=== PATIENT | female | born 1960 | race Caucasian/White ===

== ENCOUNTER → 2016-11-25 | Day surgery (SDC) | payer OTHER ==
[~2016-11-25] VITALS: Ht 160 cm; Wt 71.0 kg
[~2016-11-25] MED LIST: ASPI81TA28 PO; ATOR-24 PO; CITA40TA12 PO; CITA40TA4 PO; CLR10 PO; FENTANYL CITRATE INJ 50 MCG/1 ML 2 ML VIAL ONE; FEXO1TAB49 PO; FLUT0.15; HEPARIN SOD (PORCINE) 1000 UNIT/ML 10 ML VIAL ONE; HYDR12.55 PO; LOSA50TA6 PO; MELA1TAB5 PO; MELATAB2 PO; MIDAZOLAM HCL 1 MG/ML 2ML VIAL ONE; NITROGLYCERIN/D5W 100MCG/ML 20ML SYR ONE; NiCARDipine HCL INJ 2.5 MG/ML 10 ML AMP ONE; Proair INH; SYMIN160 INH; VNTHFA/IN INH; hydrodiuril PO
[2016-11-25 08:55] VITALS: Ht 160 cm; Wt 71.0 kg
[2016-11-25 08:56] VITALS: BP 151/67; PULSE 57; TEMP 36.5; O2SAT 94
--- NOTE | 2016-11-25 11:13 | Procedure Note ---
Pre-Mod Sedation Assessment General Date of Moderate Sedation: Nov 25, 2016. Vital Signs: Vital Signs Past 12 Hours Date Time Temp Pulse Resp B/P Pulse Ox O2 Delivery O2 Flow Rate FiO2 11/25/16 08:56 36.5 57 18 151/67 94 Room Air Review Cardiovascular: regular rate, rhythm, no edema, no gallop Abdomen: normal bowel sounds, non tender, soft Lungs: chest non-tender, lungs clear, normal breath sounds Pre-Sedation Airway Assessment Oral Cavity: WNL Short Thick Neck: No Hx of Sleep Apnea: No Smoking Status: Current Every Day Smoker Mallampati Classification: Class III ASA Classification: Class III Procedure Planning Contraindications-for Mod Sed: None Yes Notes The planned sedation has been discussed with the patient and consent obtained. I have identified the patient, determined the appropriateness of sedation and have assessed the patient immediately prior to the procedure. All medicine(s) and interventions are by my order.
--- NOTE | 2016-11-25 11:29 | Cardiac Catheterization ---
Procedure Note Procedure Date Nov 25, 2016. Pre-Procedure Diagnosis Positive Stress Test, Cardiothoracic Symptom Post-Procedure Diagnosis Severe CAD Procedure(s) Performed Coronary Angiography, Left Heart Cath Lead Warehouse Associate Dr. 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 and possible PCI ACC Data Cardiac Status Clinical evaluation leading to the procedure CAD Presntation: Positive Stress Test Anginal Classification: CCS III Heart Failure: No Stress Echocardiogram: Yes - Negative, Yes - Indeterminant Coronary Anatomy Dominant: Right Left Main (% Stenosis): Normal (short vessel) LAD (% Stenosis): Ostial (0%), Proximal (10%), Mid (50-60% at origin of bifurcating diagonal branch vessel), Distal (10%) D1 (% Stenosis): Ostial (30%), Proximal (birfurcates near the ostium, 20%), Mid (10%), Distal (10%) Circumflex (% Stenosis): Ostial (20% taper), Proximal (0%), Mid (10%), Distal OM1 (% Stenosis): Ostial (60-70%), Proximal (30%), Mid (10%), Distal (10%) RCA (% Stenosis): Ostial (0%), Proximal (10%), Mid (10%), Distal (0%) R PDA (% Stenosis): Normal R PL1 (% Stenosis): Normal AM (% Stenosis): Normal Diagnostic Status: Elective Closure Device Percutaneous Entry Location: Radial Recommendations: management recommendations (FFR of Lcx and FFR LAD with PCI if indicated) Intraprocedure Events Significant Dissection: No Perforation: No
--- NOTE | 2016-11-25 12:55 | Discharge Instructions ---
Discharge Instructions Procedure Procedure Date: Nov 25, 2016. Reason for Visit: Chest Pain,Positive Stress Test *Kopinski To Do*. Discharge Discharge Date: Nov 25, 2016. Discharge Diagnosis: Moderate CAD. Mid LAD and OM not significant by FFR. Last Recorded Wt (Kilograms): 71 Anesthesia Post Anesthesia Instructions: If you have had General Anesthesia or IV Sedation: * Do not drive today. * Resume driving when surgeon permits. * Do not make important decisions or sign legal documents today. * Call surgeon for: 1. Temperature elevations greater than 101 degrees F. 2. Uncontrollable pain. 3. Excessive bleeding. 4. Persistent nausea and vomiting. 5. Medication intolerance (nausea, vomiting or rash). * For nausea and vomiting use only clear liquids such as: tea, soda, bouillon until nausea subsides, then gradually increase diet as tolerated. * If you have any concerns or questions, call your surgeon's office. If physician is unavailable and it is an emergency, call 911 or go to the nearest emergency room. Instructions Activity Recommendations: limitations as noted below Return to School/Work: with the following limitations Recommended Home Diet: resume previous diet Allergies: Coded Allergies: Nitrofurantoin (Verified Allergy, Unknown, 07/17/12) Sulfa Drugs (Verified Allergy, Unknown, 07/17/12) Provider Instructions ACTIVITY RECOMMENDATIONS: Excess manipulation of the wrist should be avoided for the next 24-48 hours. * No lifting over 2 pounds (approximately a 1/2 gallon of milk) with the utilized arm for 24 hours. * No strenuous activity such as bowling or tennis for 3 days. * Keep the site of the procedure covered with a bandage for 24 hours. *You may shower the day after the procedure. Do not take a tub bath or submerge the puncture site in water for the next 3 days. *Do not operate any motorized equipment for 3 days. SPECIAL CARE INSTRUCTIONS: The site may be slightly bruised and sore following your procedure. Should any of the following occur, contact the DrLe who performed your procedure. 1. Redness/inflammation, swelling, chills, or fever, or colored drainage at procedure site within 3-7 days after your procedure. 2. Coldness, discoloration, ongoing numbness, severe pain, or swelling. Expect mild tingling of hand and tenderness at the puncture site for up to three days. If this persists beyond three days, or other symptoms develop, notify the Dr. who performed your procedure. BLEEDING: If the procedure site on your wrist begins to bleed, do not panic 1. Place 1 or 2 fingers firmly just slightly above the insertion site to stop the bleeding. You may be able to feel your pulse as you hold pressure. 2. Lift your finger after 5 minutes to see if the bleeding has stopped. 3. Once the bleeding has stopped, gently wipe the wrist area clean with a bandage. * If the bleeding from your wrist does not stop after 10 minutes, or if there is a large amount of bleeding or spurting, call 911 (do not drive yourself to the hospital). SKIN IRRITATION: * You may experience some redness and/or swelling in the area where radiation was administered. If any skin irritation occurs, please contact your family physician. FOLLOW UP VISIT: Keep any scheduled doctor appointments. Follow Up Follow-up with: Dr. Jorgensen as scheduled. Mercedez Plummer Recommendations: Call your doctor if: * Temperature above 101 degrees * Pain not relieved by pain medicine ordered * There is increased drainage or redness from any incision * You have any unanswered questions or concerns. Your Doctors Instructions noted above were prepared by provider Edis Ugarte. Patient Signature Section: Patient Instructions Signature Page Christina Rojas Patient (or Guardian) Signature/Date: I have read and understand the instructions given to me by my caregivers. Caregiver/RN/Doctor Signature/Date: The above-named patient and/or guardian has received patient instructions on this date. + Original Patient Signature Page (only) stays with chart. Please make copy for patient.
[2016-11-25 15:25] VITALS: BP 161/90; PULSE 61; O2SAT 95
--- NOTE | 2016-11-25 17:39 | Procedure Note ---
Cardiac Cath Report Procedure: Fractional flow reserve measurement mid LAD and ostial left circumflex marginal stenoses. Coronary angiography. Clinical indications: The patient had moderate mid LAD and ostial left circumflex marginal stenoses noted on diagnostic cardiac catheterization performed by Dr. Edis Ugarte. FFR measurement of these lesions was indicated. She has recurrent chest pain Consistent with angina. For complete diagnostic catheterization report and clinical indications for diagnostic catheterization please see the report performed by . Equipment: 6 [place]orean EBU 3.75 and EBU 3.5 guide catheters. These were unsuccessful in cannulating the left coronary artery. The left coronary artery was successfully cannulated using a 6 [place] JL 3.5 guide catheter. [place] FFR pressure wire, J tip Medication: Intravenous adenosine. Intravenous heparin, Versed, and fentanyl. Intra arterial nicardipine. Catheterization site: 6 [place]orean glide sheath slender in right radial artery. This had been inserted at time of diagnostic angiography. protocol: The pressure wire was calibrated and equalized. It was then inserted into the LAD. IFR was measured. Intravenous adenosine was then administered a dose of 180 micrograms/kilogram per minute for 2 minutes. FFR measurements were performed. the pressure wire was then withdrawn from the LAD and positioned into the left circumflex marginal. IFR measurements were obtained. Intravenous adenosine was then administered a dose of 180 micrograms/ kilogram per minute for 2 minutes. FFR measurements were performed. Angiography was then performed from orthogonal projections with the wire in place and then withdrawn. Hemostasis: Terumo TR band. Complications: None Findings: Mid LAD stenosis: IFR 0.95, FFR 0.91. Ostial left circumflex marginal stenosis: IFR 0.96, FFR 0.94. Angiography post wire insertion showed no evidence of dissection, thrombus, perforation, or distal embolic event. No change in the appearance of the LAD and left circumflex marginal stenoses compared to preprocedure angiography. Plan: No indication for percutaneous coronary intervention. Continued cardiology follow-up with the [facility] cardiology service.
== END | disposition home or self-care (01) ==
LOC: C.CATH 08:40
PROVIDERS: ATTEND Internal Medicine Cardiovascular Disease
DX: I25.10 Atherosclerotic heart disease of native coronary artery without angina pectoris (principal); I73.9 Peripheral vascular disease, unspecified; I10 Essential (primary) hypertension; Z98.51 Tubal ligation status; F17.200 Nicotine dependence, unspecified, uncomplicated

== ENCOUNTER → 2017-01-11 | Outpatient (CLI) | payer OTHER ==
[~2017-01-11] MED LIST changes: -CITA40TA12 PO; -FENTANYL CITRATE INJ 50 MCG/1 ML 2 ML VIAL ONE; -FEXO1TAB49 PO; -HEPARIN SOD (PORCINE) 1000 UNIT/ML 10 ML VIAL ONE; -MELA1TAB5 PO; -MIDAZOLAM HCL 1 MG/ML 2ML VIAL ONE; -NITROGLYCERIN/D5W 100MCG/ML 20ML SYR ONE; -NiCARDipine HCL INJ 2.5 MG/ML 10 ML AMP ONE; +OPTIRAY 320 IV PRN; -VNTHFA/IN INH; -hydrodiuril PO
--- NOTE | 2017-01-11 09:12 | DIAGNOSTIC IMAGING REPORT ---
CT ANGIOGRAM OF THE ABDOMEN AND PELVIS WITH BILATERAL LOWER EXTREMITY RUNOFF CLINICAL HISTORY: Leg pain. COMPARISON STUDY: No priors. TECHNIQUE: Following the IV administration of 118 cc of Optiray 320, CT angiogram of the abdomen and pelvis with bilateral lower externally runoff was performed from the lung bases to the feet. Images are reviewed in the axial, sagittal, and coronal planes. 3-D MIPS images are created and assessed. IV contrast was administered without complication. CT DOSE: 853.33 mGy.cm FINDINGS: Lower chest: The heart is mildly enlarged and without pericardial effusion. Emphysema is noted at the lung bases. No airspace consolidation or pleural effusion is identified. There are numerous tiny calcified granulomas. Dependent atelectasis is observed. A tiny hiatal hernia is identified. Liver: The contrast-enhanced liver is enlarged, measuring 19.5 cm in length. The liver demonstrates diffusely diminished attenuation consistent with hepatic steatosis. Fatty sparing is seen adjacent to gallbladder fossa. There is no intrahepatic or ductal dilatation. Gallbladder: Unremarkable. Spleen: Normal in size and attenuation noting heterogeneous arterial phase enhancement. Pancreas: Unremarkable. Adrenal glands: Unremarkable. Kidneys: The contrast since kidneys are normal in size and without hydronephrosis. Cortical scarring is noted in the left lower pole. The kidneys enhance symmetrically. Abdominal aorta and iliac arteries: There is advanced atherosclerotic calcification with extensive plaque seen throughout the abdominal aorta and iliac arteries. The abdominal aorta is patent. There is less than 50% luminal narrowing in the distal abdominal aorta secondary to soft plaque. No dissection is identified. 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 The left internal and external iliac arteries are patent. The right common iliac artery is patent, as are the right internal and external iliac arteries. The external iliac arteries are diminutive. Major branches of the abdominal aorta: The celiac trunk and superior mesenteric arteries are widely patent. There is high-grade stenosis the origin of the inferior mesenteric artery which is otherwise patent. The left gastric artery arises directly from the abdominal aorta. There is a replaced left hepatic artery which arises from left gastric artery. The splenic artery is patent. There are 2 right renal arteries and 3 left renal arteries. The third left renal artery is diminutive and arises inferiorly from the abdominal aorta. This vessel is thrombosed proximally, best seen on axial image #195. The remaining renal arteries are widely patent. Right lower extremity runoff: Atherosclerotic plaque an irregularity is seen throughout the arteries of the right lower extremity. The right common femoral artery is widely patent, as is the right profundus femoris artery. The right superficial femoral artery and the right popliteal artery are patent. Assessment of the popliteal artery is degraded by streak artifact from a right knee arthroplasty. There is three-vessel runoff to the right foot. The dorsalis pedis artery is patent. Left lower extremity runoff: There is atherosclerotic plaque and irregularity seen throughout the arteries of the left lower extremity. The left common femoral artery and the left profunda femoris artery are widely patent. There is less than 50% stenosis at the origin of the left superficial femoral artery seen on axial image #419 the left superficial femoral artery is otherwise widely patent, as is the left popliteal artery. The calf vessels are diminutive there is two-vessel runoff to the left foot. There is thrombosis of the distal left anterior tibial artery. The dorsalis pedis artery is not opacified. Bowel: The small bowel and colon are normal in course and caliber. There is moderate colonic fecal retention. The appendix is well-visualized and normal. Peritoneum: There is no intraperitoneal free air or abdominal ascites. There is a small fat-containing umbilical hernia. Lymphadenopathy: None. Pelvic viscera: There are foci of gas within the bladder lumen. The bladder wall appears mildly thickened. The uterus is normal in appearance. A 2.5 cm cystic structure is noted in the left ovary. Skeletal structures: No destructive bony lesions are seen. A right knee arthroplasty is in place. Lower extremity soft tissues: Lower extremity soft tissues are normal as imaged. IMPRESSION: 1. Cardiomegaly and emphysema. 2. There is advanced atherosclerotic plaque and irregularity seen throughout the abdominal aorta with less than 50% luminal narrowing secondary to soft plaque. No aneurysm or dissection is seen. 3. 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 4. There is three-vessel runoff to the right lower extremity. 5. There is two-vessel runoff to the left lower extremity. No flow is seen within the distal left anterior tibial artery or the left dorsalis pedis artery. 6. There are 2 right renal arteries and 3 left renal arteries. The most inferior left renal artery is thrombosed proximally and there is associated cortical scarring in the lower pole of the left kidney. The remaining renal arteries are patent. 7. High-grade stenosis is seen at the origin of the inferior mesenteric artery. 8. Hepatomegaly and hepatic steatosis. 9. There are foci of gas within the bladder lumen. The bladder wall appears thickened. Correlation with clinical findings and urinalysis will be required. 10. There are bilateral cystic foci/follicles present within the ovaries. This is an indeterminant but abnormal finding in a postmenopausal patient. Follow-up with gynecology consultation and pelvic ultrasound are recommended. 11. Additional changes as above. Electronically signed by: Owen March M.D. 01/11/2017 9:11 AM Dictated Date/Time: 01/11/2017 8:44 AM
== END | disposition home or self-care (01) ==
LOC: C.CTS 07:58
PROVIDERS: ATTEND Internal Medicine Interventional Cardiology
DX: I73.9 Peripheral vascular disease, unspecified (principal); I51.7 Cardiomegaly; J43.9 Emphysema, unspecified; I70.0 Atherosclerosis of aorta; I74.5 Embolism and thrombosis of iliac artery; N28.0 Ischemia and infarction of kidney; K55.1 Chronic vascular disorders of intestine; K76.0 Fatty (change of) liver, not elsewhere classified; R93.41 Abnormal radiologic findings on diagnostic imaging of renal pelvis, ureter, or bladder; R93.8 Abnormal findings on diagnostic imaging of other specified body structures

== ENCOUNTER → 2017-01-26 | Outpatient (CLI) | payer OTHER ==
[~2017-01-26] MED LIST changes: -OPTIRAY 320 IV PRN
--- NOTE | 2017-01-26 10:42 | DIAGNOSTIC IMAGING REPORT ---
LEFT WRIST MIN 3 VIEWS ROUTINE CLINICAL HISTORY: LEFT WRIST PAIN pain COMPARISON: None. DISCUSSION: The bones and joint spaces appear intact. There is no evidence of fracture, dislocation or bony disease. There is no evidence for soft tissue swelling. IMPRESSION: Negative study. Electronically signed by: Emiliano So M.D. 01/26/2017 10:40 AM Dictated Date/Time: 01/26/2017 10:39 AM
--- NOTE | 2017-01-28 07:47 | CODING QUERY NO DIAGNOSIS ---
TREATMENT RENDERED WITHOUT A DIAGNOSIS To promote full compliance with coding requirements relating to patient care, physician participation is requested in all cases of nursing unit manager uncertainty. Please assist us with providing a diagnosis/symptom for the test(s) below: A diagnosis/symptom was not documented on your Order. A valid diagnosis/symptom is required to bill all insurances. Please remember that we are unable to code a diagnosis of rule out, probable, possible, questionable, or suspected. Tests that require a diagnosis: * WRIST MIN 3 VIEWS ROUTINE DIAGNOSIS: Provider Signature: Date: Thank you Kimberly Standish [employer] Information Management Once completed, please kindly fax back to [phone] For questions please call [phone]
== END | disposition home or self-care (01) ==
LOC: C.RADBBURG 10:21
PROVIDERS: ATTEND Physician Assistant
DX: M25.532 Pain in left wrist (principal); W19.XXXA Unspecified fall, initial encounter

== ENCOUNTER → 2017-04-27 | Outpatient (CLI) | payer OTHER | END | disposition home or self-care (01) | LOC: C.RDSM 13:48 | PROVIDERS: ATTEND Physical Medicine & Rehabilitation Sports Medicine | DX: Z96.659 Presence of unspecified artificial knee joint (principal) ==

== ENCOUNTER → 2017-12-28 | Outpatient (CLI) | payer OTHER ==
--- NOTE | 2018-01-01 15:19 | PULMONARY FUNCTION TEST ---
PATIENT OF: Dr. Kimberly Holloway. Pre-bronchodilator spirometry reveals a mild obstructive ventilatory defect even more pronounced at low lung lines. Does also have a response to bronchodilator, but there was a modest improvement post-bronchodilator as evidenced by improved flow measured at low lung volumes. Lung volumes demonstrate evidence for significant hyperinflation. Diffusion capacity was moderately reduced, would not corrected for alveolar ventilation. Clinical correlation is needed.
== END | disposition home or self-care (01) ==
LOC: C.RC 10:03
PROVIDERS: ATTEND Physician Assistant
DX: J43.9 Emphysema, unspecified (principal)